=== PATIENT | male | born 1975 | race Two or more races ===

== ENCOUNTER 2024-06-08 00:30 | Emergency (ER) | payer BC ==
[~2024-06-08] VITALS: Ht 160 cm; Wt 65.9 kg
[2024-06-08 00:39] VITALS: TEMP 97.4
[2024-06-08] MEDS ORDERED: BUDE10.27 IH (00:41)
[2024-06-08] MEDS: ONDANSETRON HCL 4 MG/2 ML VIAL IVP ONE (01:17)
[2024-06-08] MEDS: KETOROLAC TROMETHAMINE 30 MG/ML VIAL IVP ONE (01:17)
[2024-06-08 01:35] LABS: APPEARANCE,URINE TURBID (CLEAR); BILIRUBIN,URINE NEGATIVE (NEGATIVE); COLOR,URINE YELLOW (YELLOW); GLUCOSE, URINE (UA) NEGATIVE (NEGATIVE); KETONES,URINE NEGATIVE (NEGATIVE); LEUKOCYTE ESTERASE ,URINE NEGATIVE (NEGATIVE); NITRATE,URINE NEGATIVE (NEGATIVE); OCCULT BLOOD,URINE SMALL (NEGATIVE); PROTEIN,URINE TRACE mg/dL (NEGATIVE); SPECIFIC GRAVITIY, URINE 1.026 (1.003-1.030); UROBILINOGEN,URINE <=1.0 mg/dL (<=1.0)
[2024-06-08 01:37] LABS: RBC,URINE 0-2 /HPF (0-2)
[2024-06-08 01:38] LABS: AMORPHOUS SEDIMENT,UR Moderate /LPF (None Seen); BACTERIA,URINE Few /HPF (None Seen); SQUAMOUS EPITHELIAL CELL,UR Few /LPF (None Seen); WBC,URINE None Seen /HPF (0-5)
[2024-06-08] MEDS: HYDROmorphone HCL 2 MG/ML SYRINGE IVP ONE (01:41)
[2024-06-08 01:42] LABS: BASOPHILS % (AUTO) 0.3 % (0.0-2.0); EOSINOPHILS % (AUTO) 0.2 % (1.0-6.0); HEMATOCRIT 45.5 % (41-53); HEMOGLOBIN 15.1 g/dL (13.5-17.5); LYMPHOCYTES # (AUTO) 1.3 K/uL (1.0-4.8); LYMPHOCYTES % (AUTO) 8.6 % (22.0-44.0); MEAN CORPUSCULAR HEMOGLOBIN 28.9 pg (26.0-34.0); MEAN CORPUSCULAR HGB CONC 33.1 G/dL (31.0-37.0); MEAN CORPUSCULAR VOLUME 87 fL (80-100); MONOCYTES # (AUTO) 0.9 K/uL (0.1-1.0); MONOCYTES % (AUTO) 6.3 % (2.0-9.0); NEUTROPHILS # (AUTO) 12.6 K/uL (1.8-7.7); NEUTROPHILS % (AUTO) 84.6 % (40.0-70.0); PLATELET COUNT (AUTO) 262 K/uL (150-450); RED BLOOD CELL COUNT(AUTO) 5.21 MIL/uL (4.50-5.90); RED CELL DISTRIBUTION WIDTH 13.3 % (11.5-14.5); WHITE BLOOD COUNT (AUTO) 14.9 K/uL (4.5-11.0)
[2024-06-08 02:00] LABS: CALCIUM, TOTAL 8.9 mg/dL (8.8-10.5); CREATININE 1.41 mg/dL (0.60-1.30); POTASSIUM 4.1 mmol/L (3.5-5.1)
[2024-06-08 02:34] VITALS: BP 137/86; PULSE 65; RESP 15; O2SAT 94
[2024-06-08] MEDS ORDERED: ONDA-104 PO (03:08)
[2024-06-08] MEDS ORDERED: IBUP-1492 PO (03:08)
[2024-06-08] MEDS ORDERED: OXYC-38 PO (03:08)
== END 2024-06-08 03:24 | disposition home or self-care (01) ==
LOC: EMS 00:30
DX: N20.9 Urinary calculus, unspecified (principal); F17.210 Nicotine dependence, cigarettes, uncomplicated; Z98.890 Other specified postprocedural states
CPT/HCPCS: 99285; 74176; 96374; 96375; 80048; 81001; 85025; 36415; J1170; J1885; J2405